=== PATIENT | male | born 1990 | race Caucasian/White ===

== ENCOUNTER 2018-12-13 21:43 | Emergency (ER) | payer OTHER ==
[~2018-12-13] VITALS: Ht 177.8 cm; Wt 84.4 kg
[2018-12-13 21:57] VITALS: BP 120/78
--- NOTE | 2018-12-13 22:02 | NUR ---
TO LOBBY A/W BED, AYDEN VELASCO NOTED
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
--- NOTE | 2018-12-13 22:49 | NUR ---
PT TAKEN TO CT AT THIS TIME VIA WHEELCHAIR
--- NOTE | 2018-12-13 22:55 | NUR ---
PT RETURNED VIA WHEELCHAIR TO BED 9
--- NOTE | 2018-12-13 23:32 | NUR ---
pt resting in bed. rr even/unlabored. NAD noted. pt speaking on cell phone
[2018-12-14 00:05] VITALS: BP 118/74
--- NOTE | 2018-12-14 00:05 | NUR ---
Patient discharged with v/s stable. Written and verbal after care instructions given and explained. Patient alert, oriented and verbalized understanding of instructions. Ambulatory with steady gait. All questions addressed prior to discharge. ID band removed. Patient advised to follow up with PMD. Rx of MOTRIN AND ROBAXIN given. Patient educated on indication of medication including possible reaction and side effects. Opportunity to ask questions provided and answered.
== END 2018-12-14 00:05 | disposition home or self-care (01) ==
LOC: MED 21:43
DX: M54.2 Cervicalgia (principal); Y04.0XXA Assault by unarmed brawl or fight, initial encounter; Y93.89 Activity, other specified; Y92.89 Other specified places as the place of occurrence of the external cause; Y99.8 Other external cause status
CPT/HCPCS: 72040; 72125; 99284